=== PATIENT | male | born 1995 | race African-American/Black ===

== ENCOUNTER 2019-08-16 22:18 | Emergency (ER) | payer OTHER ==
[~2019-08-16] VITALS: Ht 175.3 cm; Wt 80.9 kg
[2019-08-16] MEDS ORDERED: ACET-683 PO (22:23)
[2019-08-16 23:30] VITALS: BP 118/75
== END 2019-08-16 23:32 | disposition home or self-care (01) ==
LOC: M ED 22:18
DX: J06.9 Acute upper respiratory infection, unspecified (principal)